=== PATIENT | male | born 2000 | race Caucasian/White ===

== ENCOUNTER 2021-10-04 05:45 | Emergency (ER) | payer OTHER, SELFPAY ==
[2021-10-04 05:48] VITALS: BP 145/80; PULSE 91; RESP 16; TEMP 36.8; O2SAT 98; BMI 29.8
--- NOTE | 2021-10-04 06:09 | XR_ITS ---
PROCEDURE INFORMATION: Exam: XR Right Ankle Exam date and time: 10/04/2021 6:09 AM Age: 21 years old Clinical indication: Patient HX: PT rolled ankle while running, right ankle swelling and lateral pain; Additional info: Injury TECHNIQUE: Imaging protocol: XR Right ankle. Views: 3 or more views. COMPARISON: No relevant prior studies available. FINDINGS: Bones/joints: Normal. Soft tissues: Normal. IMPRESSION: No acute findings.
--- NOTE | 2021-10-04 07:00 | HMH.EDLOEX ---
ED Disposition Clinical Impression: Sprain of ligament of ankle Qualifiers: Encounter type: initial encounter Laterality: right Qualified Code(s): S93.401A - Sprain of unspecified ligament of right ankle, initial encounter Disposition: Home, Self-Care Condition on Discharge: Good Instructions: DI for Ankle Sprain Additional Instructions: ice and use meds and see pcp and podiatry Prescriptions: Meloxicam [Mobic 15 mg tab] 15 mg PO DAILY #10 tab Transmission Status: Pending to [facility] Referrals: Austin Beckman MD [Primary Care Provider] - Lydia Dong DPM [Staff Physician] - - Critical Care Critical Care Time: No Attestation: On 10/04/21, the high probability of a clinically significant, sudden or life threatening deterioration of the following system(s) required my full and direct attention, intervention and personal management. The time I documented below is in addition to time spent performing reported procedures but includes the following listed in this critical care notation. Medical Decision Making - Medical Records Medical records reviewed: Yes: I reviewed the patient's medical records. - Roberto Carlos Inquiry Pt receiving controlled substance: No Vital Signs: 10/04/21 05:48 Temperature 98.3 F Temperature Source Oral Pulse Rate [Left] 91 H Respiratory Rate 16 Blood Pressure [Right Arm] 145/80 H Blood Pressure Mean [Right Arm] 101 02 Sat by Pulse Oximetry 98 - Radiology Data #1 Image(s): Ankle Image Reviewed: Yes I have reviewed radiologist's interpretation Preliminary Findings: No Fracture Seen Medical Decision Narrative: has sig lig injury and will refer to dr dong Lower Extremity Injury HPI - General Chief Complaint: Extremity Injury, Lower Stated Complaint: AO 10/04/21 0436 injury to right ankle Time Seen by Provider: 10/04/21 07:00 Mode of Arrival: Ambulatory Source of Information: Patient, Medical Record Limitations: No Limitations Description of Symptoms (Recalled from ER Triage Doc. by RN): pt states he rolled his ankle this morning while running then had to walk a quarter mile on it. the right ankle has visable swelling and pt rates the pain a 5/10 but 8/10 when baring weight. - History of Present Illness HPI Narrative: acute rt ankle injury this am while running complaint: ankle injury Onset (ago): hour(s) Injury: Right: ankle Type of Injury: unknown Place: street/outdoors Severity: moderate Context: running Associated symptoms: swelling, unable to bear weight Other symptoms: none - Related Data Previous Rx's Medication Instructions Recorded Meloxicam [Mobic 15 mg tab] 15 mg PO DAILY #10 tab 10/04/21 Allergies Allergy/AdvReac Type Severity Reaction Status Date / Time amoxicillin [From AUGMENTIN] Allergy Mild Unverified 08/26/17 15:07 cefdinir [From OMNICEF] Allergy Mild Unverified 08/26/17 15:07 clavulanic acid Allergy Mild Unverified 08/26/17 15:07 [From AUGMENTIN] penicillin G [PENICILLIN G] Allergy Mild Unverified 08/26/17 15:07 sulfamethoxazole Allergy Mild Unverified 08/26/17 15:07 [From BACTRIM] trimethoprim [From BACTRIM] Allergy Mild Unverified 08/26/17 15:07 [facility] History - Hepatitis A Screen Drug use history?: No High risk sexual behaviors?: No History of sexually transmitted infection?: No Currently employed?: No Childcare worker?: No Do you have indoor plumbing?: Yes Do you have electricity?: Yes Attestation statement:: This patient has been screened for Hepatitis A risk factors. I have reviewed the patient's past medical history: Yes ROS Obtained: Yes All systems reviewed & no additional complaints - Constitutional Constitutional: Denies fever(s) - Eyes Eyes: Denies change in vision - ENT Ears, Nose, Mouth, and Throat: Denies sore throat - Cardiovascular Cardiovascular: Denies chest pain - Respiratory Respiratory: Denies shortness of breath - Gastrointestinal Gastro
[2021-10-04 07:13] VITALS: BP 145/80; PULSE 88; RESP 16; TEMP 36.8
== END 2021-10-04 07:19 | disposition home or self-care (01) ==
PROVIDERS: Emergency Provider Emergency Medicine; PCP Internal Medicine Adolescent Medicine
DX: S93.401A Sprain of unspecified ligament of right ankle, initial encounter (principal); X50.1XXA Overexertion from prolonged static or awkward postures, initial encounter; Y92.89 Other specified places as the place of occurrence of the external cause; Z88.0 Allergy status to penicillin; Z88.2 Allergy status to sulfonamides
CPT/HCPCS: 29515; 73610; 99282

== ENCOUNTER 2021-10-05 17:18 | Emergency (ER) | payer OTHER, SELFPAY ==
--- NOTE | 2021-10-05 18:29 | HMH.EDUTC ---
[facility] [place] Disposition Clinical Impression: Right ankle sprain Qualifiers: Encounter type: subsequent encounter Involved ligament of ankle: unspecified ligament Qualified Code(s): S93.401D - Sprain of unspecified ligament of right ankle, subsequent encounter Right foot sprain Qualifiers: Encounter type: initial encounter Qualified Code(s): S93.601A - Unspecified sprain of right foot, initial encounter Disposition: Home, Self-Care Condition on Discharge: Good Instructions: DI for Ankle Sprain, DI for Foot Sprain Additional Instructions: Rest the extremity, apply ice for 15 minutes as tolerated three or four times per day, Wear the radha wrap for compression, Elevate the extremity as tolerated while you are resting. Take ibuprofen for pain. I sent in a prescription to your pharmacy. Stop the meloxicam that you were prescribed last night. Follow up with Dr. Dong as scheduled. Follow up with your regular doctor. GO TO THE ER FOR ANY WORSENING SYMPTOMS Prescriptions: Ibuprofen [Ibuprofen 800mg Tablet] 800 mg PO Q8HP PRN #30 tab PRN Reason: Moderate Pain Transmission Status: Received by [facility] #[id number] Referrals: Austin Beckman MD [Primary Care Provider] - Time of Disposition: 19:10 Medical Decision Making - Medical Records Medical records reviewed: No: I reviewed the patient's medical records. - Roberto Carlos Inquiry Pt receiving controlled substance: No Vital Signs: 10/05/21 18:30 10/05/21 19:22 Temperature 98.9 F 98.9 F Temperature Source Oral Pulse Rate 73 Pulse Rate [Right] 73 Respiratory Rate 18 18 Blood Pressure 153/74 H Blood Pressure [Right Arm] 153/74 H Blood Pressure Mean [Right Arm] 100 02 Sat by Pulse Oximetry 97 - Radiology Data #1 Image(s): Foot/Toes Image Reviewed: Yes I reviewed the patient's radiology image, Yes I have reviewed radiologist's interpretation Preliminary Findings: Normal/NAD, No Fracture Seen PROCEDURE INFORMATION: Exam: XR Right Foot Exam date and time: 10/05/2021 6:41 PM Age: 21 years old Clinical indication: Injury or trauma; Other: Teisted ankle and foot; Sprain or strain; Right; Injury date: 10/04/2021; Patient HX: Twisted RT foot and ankle bruising on lateral foot; Additional info: Twisted foot, foot pain TECHNIQUE: Imaging protocol: XR Right foot. Views: 3 or more views. COMPARISON: CR XR ANKLE RT MIN 3V 10/04/2021 6:36 AM FINDINGS: Bones/joints: Normal. Soft tissues: Normal. IMPRESSION: No acute findings. [facility] [place] HPI - General Stated complaint: AO 0127@0430 F/U INJURED R ANKLE Time Seen by Provider: 10/05/21 18:30 - History of Present Illness Provider Complaint: He twisted his right ankle yesterday while running. He came to the ER last night for this and had an ankle x-ray done. He states that the x-ray did not show a fracture. He was diagnosed with a sprained ankle and discharged with crutches and an radha wrap. He states that since then he has had worsening right foot and ankle pain. So he came back in to be rechecked. - Related Data Previous Rx's Medication Instructions Recorded Meloxicam [Mobic 15 mg tab] 15 mg PO DAILY #10 tab 10/04/21 Ibuprofen [Ibuprofen 800mg 800 mg PO Q8HP PRN #30 tab 10/05/21 Tablet] Allergies Allergy/AdvReac Type Severity Reaction Status Date / Time amoxicillin [From AUGMENTIN] Allergy Mild Verified 10/04/21 07:06 cefdinir [From OMNICEF] Allergy Mild Verified 10/04/21 07:06 clavulanic acid Allergy Mild Verified 10/04/21 07:06 [From AUGMENTIN] penicillin G [PENICILLIN G] Allergy Mild Verified 10/04/21 07:06 sulfamethoxazole Allergy Mild Verified 10/04/21 07:06 [From BACTRIM] trimethoprim [From BACTRIM] Allergy Mild Verified 10/04/21 07:06 [facility] History - Hepatitis A Screen Attestation statement:: This patient has been screened for Hepatitis A risk factors
[2021-10-05 18:30] VITALS: BP 153/74; PULSE 73; RESP 18; TEMP 37.2; O2SAT 97; BMI 29.8
--- NOTE | 2021-10-05 18:41 | XR_ITS ---
PROCEDURE INFORMATION: Exam: XR Right Foot Exam date and time: 10/05/2021 6:41 PM Age: 21 years old Clinical indication: Injury or trauma; Other: Teisted ankle and foot; Sprain or strain; Right; Injury date: 10/04/2021; Patient HX: Twisted RT foot and ankle bruising on lateral foot; Additional info: Twisted foot, foot pain TECHNIQUE: Imaging protocol: XR Right foot. Views: 3 or more views. COMPARISON: CR XR ANKLE RT MIN 3V 10/04/2021 6:36 AM FINDINGS: Bones/joints: Normal. Soft tissues: Normal. IMPRESSION: No acute findings.
[2021-10-05 19:22] VITALS: BP 153/74; PULSE 73; RESP 18; TEMP 37.2
== END 2021-10-05 19:23 | disposition home or self-care (01) ==
PROVIDERS: Emergency Provider Nurse Practitioner Family; PCP Internal Medicine Adolescent Medicine
DX: S93.401A Sprain of unspecified ligament of right ankle, initial encounter (principal); S93.601A Unspecified sprain of right foot, initial encounter; X50.1XXA Overexertion from prolonged static or awkward postures, initial encounter; Y92.89 Other specified places as the place of occurrence of the external cause; Z88.0 Allergy status to penicillin; Z88.2 Allergy status to sulfonamides
CPT/HCPCS: 73630; 99202; G0463

== ENCOUNTER 2022-03-18 17:51 | Emergency (ER) | payer OTHER, SELFPAY ==
[2022-03-18 18:19] VITALS: PULSE 72; RESP 18; TEMP 36.8; O2SAT 97; BMI 27.1
--- NOTE | 2022-03-18 18:23 | HMH.EDUTC ---
[facility] [place] Clinical Impression: Viral syndrome Disposition: Home, Self-Care Condition on Discharge: Good Instructions: DI for Fever (Symptom) -- Adult, DI for COVID-19 (Suspected or Confirmed ), Preventing the Spread of Coronavirus Discharge Instructions Additional Instructions: *Monitor Temp, Over the counter Motrin or Tylenol as directed/as needed Tylenol every 4 hours and Motrin every 6 hours (as long as your family doctor has told you that you can take it) for fever or pain. and straight to ER if unable to lower temp less than 101.0 after medication given *Warm salt water gargles may help to soothe the throat *Throat Lozenges *Warm fluids like tea with honey may help to soothe the throat *Sleep elevated *Humidifier/Vaporizer Follow up IMMEDIATELY for new or worsening symptoms or no Noticeable improvement over the next 48-72 hours. 911 for difficulty breathing or swallowing You were tested for today for COVID19 your test result should be back in the next 24-48 hours, you may check your results on the [facility] Portal for your results Make sure to take your Vitamins Vit. C Vit D and Zinc if you can take them Referrals: Austin Beckman MD [Primary Care Provider] - Forms: Work/School Release Time of Disposition: 18:25 Medical Decision Making - Roberto Carlos Inquiry Pt receiving controlled substance: No Roberto Carlos was queried for this patient: No Vital Signs: 03/18/22 18:19 Temperature 98.2 F Temperature Source Oral Pulse Rate [Left] 72 Respiratory Rate 18 02 Sat by Pulse Oximetry 97 Orders (Tests/Meds): ORDERS Category Date Time Status Covid-19 Nasal PCR ([facility]) Routine Lab 03/18/22 18:13 Received [facility] [place] HPI - General Stated complaint: covid test Time Seen by Provider: 03/18/22 18:23 Description of Symptoms (Recalled from Triage Doc. by RN): patient comes in for covid test. patient began having fever and chills and headache begining friday. HEENT Symptoms (Recalled from RN notes): Yes Resp Symptoms (Recalled from RN notes): No Skin Symptoms (Recalled from RN notes): No MS Symptoms (Recalled from RN notes): No Functional Status (Recalled from RN notes): n/a - History of Present Illness Provider Complaint: Patient states that he started feeling bad on Friday States that he has been having fever, chills, bodyaches and headache State that he was worried that he may have COVID when he was still not feeling well today so he came in to get tested - Related Data Previous Rx's Medication Instructions Recorded Ibuprofen [Ibuprofen 800mg 800 mg PO Q8HP PRN #30 tab 10/05/21 Tablet] meloxicam 7.5 mg tablet 7.5 mg PO BID PRN 30 Days #60 tab 10/25/21 Allergies Allergy/AdvReac Type Severity Reaction Status Date / Time amoxicillin [From AUGMENTIN] Allergy Mild Verified 10/25/21 08:39 cefdinir [From OMNICEF] Allergy Mild Verified 10/25/21 08:39 clavulanic acid Allergy Mild Verified 10/25/21 08:39 [From AUGMENTIN] penicillin G [PENICILLIN G] Allergy Mild Verified 10/25/21 08:39 sulfamethoxazole Allergy Mild Verified 10/25/21 08:39 [From BACTRIM] trimethoprim [From BACTRIM] Allergy Mild Verified 10/25/21 08:39 - Worker's Comp Is this a Worker's Comp case?: No [facility] History - Hepatitis A Screen Attestation statement:: This patient has been screened for Hepatitis A risk factors. I have reviewed the patient's past medical history: Yes Other Surgeries: Yes: Appendectomy Comment: Beulah Teeth - Social History Smoking Status: Never smoker Alcohol Intake: current Alcohol Intake Frequency:: holidays/special occasions only Substance Use Type: denies use Occupational Status: employed Family Hx:: Diabetes, Heart Attack ROS Obtained: Yes All systems reviewed & no additional complaints, Yes Systems reviewed as appropriate & no additional complaints - Constitutional Constitutional: Reports system reviewed and no additional complaints, except as docu, Reports body
[2022-03-18 18:28] VITALS: BP 109/63; PULSE 72; RESP 18; TEMP 36.8
== END 2022-03-18 18:35 | disposition home or self-care (01) ==
PROVIDERS: Emergency Provider Nurse Practitioner; PCP Internal Medicine Adolescent Medicine
DX: U07.1 COVID-19 (principal)
CPT/HCPCS: 99212; C9803; G0463; U0003; U0005

== ENCOUNTER 2023-03-05 11:23 | Emergency (ER) | payer OTHER, SELFPAY ==
[2023-03-05 11:30] VITALS: BP 135/68; PULSE 62; RESP 18; TEMP 36.7; O2SAT 100; BMI 31.8
--- NOTE | 2023-03-05 11:52 | EXP.UTC ---
Discharge Plan Disposition Patient Disposition: Home, Self-Care Condition: Good Prescriptions Prescriptions: New meclizine 25 mg tablet 25 mg PO TID PRN (Reason: dizziness) Qty: 15 0RF No Action meloxicam [Mobic] 7.5 mg tablet 7.5 mg PO BID PRN (Reason: pain) 30 Days Qty: 60 2RF Rx Instructions: Take one pill up to twice daily as needed for pain ibuprofen 800 MG tablet 800 mg PO Q8HP PRN (Reason: Moderate Pain) Qty: 30 0RF Referrals Follow up/Referrals: Gladys Barraza APRN [Primary Care Provider] - See instructions Activity Restrictions/Add. Instructions Additional Instructions/Restrictions: Take medication as prescribed Follow up with your Family Doctor if no imrovement or any worsening of symptoms for further testing and evaluation Straight to ER if any life threatening symptoms Slow steady movements and no driving until dizziness has improved you cannot drive while feeling dizzy Take it easy for the next few days no lifting or running and make sure that you are drinking plenty of fluids Clinical Impressions Clinical Impression: Vertigo Stand Alone Forms Stand Alone Forms: Work/School Release Instructions Patient Instructions: Vertigo, DI for Vertigo Discharge ED Provider: Azul Oneill [facility] General Stated complaint: dizzy, weak Mode of Arrival: Ambulatory Source of Information: Patient Limitations: No Limitations Time Seen by Provider: 03/05/23 11:52 Description of Symptoms (Recalled from Triage Doc. by RN): PATIENT C/O DIZZINESS AND FAINT FEELING. 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 over to release ratchet strap and when he stood up States that he felt like everything was spinning around him States that he felt like he was going to fall out States that he sit for a minute and it got a better States that he was not sure if his blood sugar may have dropped or what but he did have a protein shake and banana this morning for breakfast Related Data Previous Rx's Medication Instructions Recorded ibuprofen 800 mg tablet 800 mg PO Q8HP PRN Moderate Pain 10/05/21 #30 tabs meloxicam 7.5 mg tablet (Mobic) 7.5 mg PO BID PRN pain 30 days #60 10/25/21 tabs meclizine 25 mg tablet 25 mg PO TID PRN dizziness #15 tabs 03/05/23 Allergies Allergy/AdvReac Type Severity Reaction Status Date / Time amoxicillin [From AUGMENTIN] Allergy Mild Verified 10/25/21 08:39 cefdinir [From OMNICEF] Allergy Mild Verified 10/25/21 08:39 clavulanic acid Allergy Mild Verified 10/25/21 08:39 [From AUGMENTIN] penicillin G [PENICILLIN G] Allergy Mild Verified 10/25/21 08:39 sulfamethoxazole Allergy Mild Verified 10/25/21 08:39 [From BACTRIM] trimethoprim [From BACTRIM] Allergy Mild Verified 10/25/21 08:39 Worker's Comp Is this a Worker's Comp case?: No [facility] Disclaimer: The information contained in this section may have been updated after the patient was seen, as this information can be updated by other users. Social History Smoking Status: Never smoker alcohol intake: current substance use type: denies use current occupational status: employed Travel in the last 8 weeks: None ROS Obtained: Yes All systems reviewed & no additional complaints except as documented and Yes Systems reviewed as appropriate & no additional complaints except as documented Constitutional Constitutional: Reports system reviewed and no additional complaints, except as documented and Reports as per HPI Eyes Eyes: Reports system reviewed and no
[2023-03-05 11:58] VITALS: BP 125/74; BP 139/76; BP 142/79; PULSE 50; PULSE 64; PULSE 73
[2023-03-05 12:18] VITALS: BP 135/68; PULSE 62; RESP 18; TEMP 36.7; O2SAT 100
== END 2023-03-05 12:32 | disposition home or self-care (01) ==
PROVIDERS: Emergency Provider Nurse Practitioner; PCP Nurse Practitioner Family
DX: R42 Dizziness and giddiness (principal); R53.1 Weakness
CPT/HCPCS: 99212; 99214; G0463